=== PATIENT | male | born 1975 ===

== ENCOUNTER 2025-06-26 09:01 | Outpatient (CLI) | payer OTHER ==
[~2025-06-26 09:01] MED LIST: FLONASE16 GM NS; ZYRTEC10 MG PO
== END 2025-06-26 09:09 | disposition home or self-care (01) ==
LOC: SONOGRAMA 09:01
PROVIDERS: ATTEND Internal Medicine Gastroenterology
DX: K76.0 Fatty (change of) liver, not elsewhere classified (principal)